=== PATIENT | female | born 1960 | race Hispanic/Latino ===

== ENCOUNTER → 2019-02-26 | Day surgery (SDC) | payer OTHER ==
[~2019-02-26] MED LIST: FENTANYL CITRATE/PF 100MCG/2 ML INJ ONE; FISH OIL 1,0001 EAC2 PO; HYOSCYAMINE 0.125 MG TAB ONE; MIDAZOLAM HCL 5MG/ML 2ML VIAL ONE; PROPOFOL IV EMULSION 10 MG/ML 50 ML VIAL ONE; THYROID PILL PO
[2019-02-26 12:15] VITALS: BP 125/71
--- NOTE | 2019-02-26 17:24 | Operative Report ---
DATE OF PROCEDURE: 02/26/2019 SURGEON: Piotr Dc MD PROCEDURE: An EGD with biopsies and esophageal dilatation and colonoscopy with polypectomy. INDICATION FOR EGD: Dysphagia, history of heartburn, and bloating. INDICATIONS FOR COLONOSCOPY: Colorectal cancer screening. MEDICATIONS: The patient was done under MAC. Please see anesthesiologist's note. PROCEDURE #1: With the patient in left lateral decubitus position, flexible fiberoptic Olympus gastroscope was introduced into the esophagus under direct visualization without any difficulty. There was some patchy erythema noted in distal esophagus. There was a mild stricture noted at the GE junction that was dilated to size 52-Armenian Flynn. The scope was then advanced with ease into the stomach. Mucosa overlying the antrum and the body revealed some patchy erythema and [id number] edema. Biopsies were obtained and sent to stain for H pylori. A submucosal nodule was noted in the mid body along the greater curvature and that was biopsied. Pylorus appeared to be of normal contour and shape and was intubated with ease and the scope was advanced all the way to the second portion of the duodenum. The scope was then withdrawn slowly mucosa overlying the proximal second portion and duodenal bulb appeared to be within normal limits. The scope was then withdrawn back into the stomach and retroflexed and mucosa overlying the fundus and cardia appeared to be within normal limits. The scope was then straightened out it was subsequently withdrawn. The patient tolerated procedure well. IMPRESSION: 1. Mild distal esophagitis. 2. Esophageal stricture at GE junction, dilated to size 52-Armenian Flynn. 3. Gastritis, biopsied. Biopsies sent to stain for H pylori. 4. Submucosal nodule, midbody greater curvature, biopsied. PLAN: Follow up histology. Initiate Protonix 40 mg one p.o. q.a.m. a.c. PROCEDURE #2: The patient was then turned around after adequate lubrication of the anal canal. Flexible fiberoptic Olympus colonoscope was inserted into the rectum with ease and advanced all the way to the cecum. A minute polyp was noted in the cecum that was removed per cold biopsy forceps. The scope was then withdrawn slowly in the ascending colon and appeared to be within normal limits. One polyp was hot biopsied from the transverse colon. The descending and the sigmoid appeared to be within normal limits. One polyp was hot biopsied from the rectum. The scope was then retroflexed into the distal rectum and small internal hemorrhoids were noted, none of which was actively bleeding. The scope was then straightened out it was subsequently withdrawn. The patient tolerated procedure well. IMPRESSION: 1. Cecal polyp removed per cold biopsy forceps. 2. Transverse colon polyp, removed per hot biopsy forceps. 3. Rectal polyp, hot biopsied. 4. Internal hemorrhoids, none actively bleeding. A total of 3 polyps were removed. The patient tolerated the procedure well. PLAN: Followup histology. Initiate high-fiber, low-fat diet. Initiate high-fiber supplement. The patient might benefit from a followup colonoscopy in 5 years. Piotr cD MD [facility] [place] /[id number] cc: Lizett Aguiar MD
== END | disposition home or self-care (01) ==
LOC: OR 07:05
PROVIDERS: ATTEND Internal Medicine Gastroenterology
DX: L29.0 Pruritus ani (principal); D12.3 Benign neoplasm of transverse colon; K62.1 Rectal polyp; K29.50 Unspecified chronic gastritis without bleeding; B96.81 Helicobacter pylori [H. pylori] as the cause of diseases classified elsewhere; K22.2 Esophageal obstruction; K20.9 Esophagitis, unspecified; K31.89 Other diseases of stomach and duodenum; K64.8 Other hemorrhoids; K76.0 Fatty (change of) liver, not elsewhere classified; E03.9 Hypothyroidism, unspecified; Z01.810 Encounter for preprocedural cardiovascular examination
CPT/HCPCS: 43239; 43450; 45380; 45384; 93005; J2250; J2704; J3010